=== PATIENT | female | born 1945 | race Caucasian/White ===

== ENCOUNTER → 2017-03-16 | Outpatient (CLI) | payer MEDICARE ==
--- NOTE | 2017-03-18 09:37 | MM ---
Reason for exam: screening (asymptomatic). Last mammogram was performed 1 year and 1 month ago. History: Patient is postmenopausal and has history of endometrial cancer at age 37. Physical Findings: A clinical breast exam by your physician is recommended on an annual basis and results should be correlated with mammographic findings. MG 3D Screening Mammo W/Cad Bilateral CC and MLO view(s) were taken. Prior study comparison: February 20, 2016, bilateral MG 3d screening mammo w/cad. There is chronic nodularity bilaterally. No significant changes when compared with prior studies. ASSESSMENT: Benign, BI-RAD 2 RECOMMENDATION: Routine screening mammogram of both breasts in 1 year.
== END | disposition home or self-care (01) ==
LOC: RADMAMWWP 15:15
PROVIDERS: ATTEND Internal Medicine Geriatric Medicine
DX: Z12.31 Encounter for screening mammogram for malignant neoplasm of breast (principal)
CPT/HCPCS: 77063; G0202

== ENCOUNTER → 2018-04-29 | Outpatient (CLI) | payer MEDICARE, OTHER ==
[2018-04-29 10:40] LABS: Basophils # (A) 0.1 k/uL (0-0.2); Basophils % (A) 1 %; Eosinophils # (A) 0.2 k/uL (0-0.7); Eosinophils % (A) 3 %; HCT 42.4 % (34.0-46.0); HGB 13.9 gm/dL (11.4-16.0); Lymphocytes # (A) 2.1 k/uL (1.0-4.8); Lymphocytes % (A) 26 %; MCH 29.6 pg (25.0-35.0); MCHC 32.8 g/dL (31.0-37.0); MCV 90.2 fL (80.0-100.0); Mean Platelet Volume 6.4; Monocytes # (A) 0.4 k/uL (0-1.0); Monocytes % (A) 5 %; Neutrophils # (A) 5.2 k/uL (1.3-7.7); Neutrophils % (A) 65 %; Platelet Count 275 k/uL (150-450); RDW 13.7 % (11.5-15.5); WBC 8.1 k/uL (3.8-10.6)
--- NOTE | 2018-04-29 11:27 | BD ---
EXAMINATION TYPE: Axial Bone Density DATE OF EXAM: 04/29/2018 COMPARISON: Prior DEXA bone scan February 20, 2016 CLINICAL HISTORY: Height: 4 FT 10 1/2 IN Weight: 161 FRAX RISK QUESTIONS: Family History (Parent hip fracture): YES Secondary Osteoporosis: RISK FACTORS HISTORY OF: Active: YES Postmenopausal woman: PART HYST 37 MEDICATIONS: : Additional Medications: LOSARTAN, BENICAR, WATER PILL, VIT D, POTASSIUM, LOVASTATIN, Additional History: EXAM MEASUREMENTS: Bone mineral densitometry was performed using the [employer] System. Bone mineral density as measured about the Lumbar spine is: ----- L1-L4(G/cm2): 1.040 T Score Values are as follows: ----- L2: -0.6 ----- L3: -0.5 ----- L4: -0.5 ----- L1-L4: -1.0 Bone mineral density has: INCREASED 3.2 % since study of: 2015 Bone mineral density about the R hip (g/cm2): 0.660 Bone mineral density about the L hip (g/cm2): 0.724 T Score values are as follows: -----R Neck: -2.7 -----L Neck: -2.3 -----R Total: -1.9 -----L Total: -1.7 Bone mineral density has: INCREASED 0.6 % since study of: 2015 IMPRESSION: Osteoporosis (T Score less than -2.5) femoral neck level right hip remains present. Bone density fair ly stable from prior. There remains increased fracture risk and therapy is usually indicated based on age. Re-Screen 1-2 years. NOTE: T-SCORE=SD OF THE YOUNG ADULT MEAN.
[2018-04-29 13:16] LABS: ALT 43 U/L (9-52); AST 30 U/L (14-36); Albumin 3.9 g/dL (3.5-5.0); Alkaline Phosphatase 101 U/L (38-126); Anion Gap 6 mmol/L; Blood Urea Nitrogen 15 mg/dL (7-17); Calcium 10.5 mg/dL (8.4-10.2); Carbon Dioxide 29 mmol/L (22-30); Chloride 106 mmol/L (98-107); Cholesterol 166 mg/dL (<200); Glucose 105 mg/dL (74-99); HDL Cholesterol 54 mg/dL (40-60); LDL Cholesterol,Calculated 89 mg/dL (0-99); Potassium 4.1 mmol/L (3.5-5.1); Sodium 141 mmol/L (137-145); Total Bilirubin 0.7 mg/dL (0.2-1.3); Total Protein 6.8 g/dL (6.3-8.2); Triglycerides 117 mg/dL (<150)
[2018-04-29 13:32] LABS: T4, Free (Free Thyroxine) 1.06 ng/dL (0.78-2.19)
[2018-04-29 19:40] LABS: Hemoglobin A1C 5.9 % (4.0-6.0)
--- NOTE | 2018-04-30 12:11 | MM ---
Reason for exam: screening (asymptomatic). Last mammogram was performed 1 year and 1 month ago. History: Patient is postmenopausal and has history of endometrial cancer at age 37. Physical Findings: A clinical breast exam by your physician is recommended on an annual basis and results should be correlated with mammographic findings. MG 3D Screening Mammo W/Cad Bilateral CC and MLO view(s) were taken. Prior study comparison: March 16, 2017, bilateral MG 3d screening mammo w/cad. February 20, 2016, bilateral MG 3d screening mammo w/cad. The breast tissue is heterogeneously dense. This may lower the sensitivity of mammography. There is chronic nodularity bilaterally. There is no dominant lesion. No significant changes when compared with prior studies. ASSESSMENT: Benign, BI-RAD 2 RECOMMENDATION: Routine screening mammogram of both breasts in 1 year.
== END | disposition home or self-care (01) ==
LOC: RADMAMWWP 09:12
PROVIDERS: ATTEND Internal Medicine Geriatric Medicine
DX: Z12.31 Encounter for screening mammogram for malignant neoplasm of breast (principal); M81.0 Age-related osteoporosis without current pathological fracture; E55.9 Vitamin D deficiency, unspecified; D12.6 Benign neoplasm of colon, unspecified; E78.00 Pure hypercholesterolemia, unspecified; R79.9 Abnormal finding of blood chemistry, unspecified
CPT/HCPCS: 36415; 77063; 77067; 77080; 80053; 80061; 82306; 83036; 84439; 84443; 85025

== ENCOUNTER → 2019-05-20 | Outpatient (CLI) | payer MEDICARE ==
--- NOTE | 2019-05-20 09:40 | MM ---
Reason for exam: screening (asymptomatic). Last mammogram was performed 1 year and 1 month ago. History: Patient is postmenopausal and has history of endometrial cancer at age 37. Physical Findings: A clinical breast exam by your physician is recommended on an annual basis and results should be correlated with mammographic findings. MG 3D Screening Mammo W/Cad Bilateral CC and MLO view(s) were taken. Prior study comparison: April 29, 2018, bilateral MG 3d screening mammo w/cad. March 16, 2017, bilateral MG 3d screening mammo w/cad. The breast tissue is heterogeneously dense. This may lower the sensitivity of mammography. There are benign appearing round calcifications bilaterally. There is chronic nodularity bilaterally. There is no discrete abnormality. ASSESSMENT: Benign, BI-RAD 2 RECOMMENDATION: Routine screening mammogram of both breasts in 1 year.
== END | disposition home or self-care (01) ==
LOC: RADMAMWWP 08:54
PROVIDERS: ATTEND Internal Medicine Geriatric Medicine
DX: Z12.31 Encounter for screening mammogram for malignant neoplasm of breast (principal)
CPT/HCPCS: 77063; 77067

== ENCOUNTER → 2022-02-27 | Outpatient (CLI) | payer MEDICARE ==
--- NOTE | 2022-02-27 19:19 | BD ---
EXAMINATION TYPE: Axial Bone Density DATE OF EXAM: 02/27/2022 CLINICAL HISTORY: 76 years year old Female. ICD-10 CODE: AGE RELATED OSTEOPOROSIS M810 Height: 59.75 Weight: 170.3 FRAX RISK QUESTIONS: Alcohol (3 or more units per day): NO Family History (Parent hip fracture): MOTHER Glucocorticoids (More than 3mos): NO History of Fracture in Adulthood: NO Secondary Osteoporosis: 1. Type 1 Diabetes: NO 2. Hyperthyroidism: NO 3. Menopause before 45: YES 4. Malnutrition: NO 5. Chronic liver disease: NO Rheumatoid Arthritis: NO Current Tobacco Use: NO RISK FACTORS HISTORY OF: Hip Fracture (Right/Left): NO Spine Fracture: NO History of Wrist Fracture: NO Surgery to Spine/Hip(right/left)/Wrist (right/left): NO Family History of Osteoporosis: NO Active: YES Diet low in dairy products/other sources of calcium: YES Postmenopausal woman: YES Take estrogen and/or progesterone medications: NO Lost more than 2 inches in height since high school: NO Frequent falls: NO Poor Health: NO Hyperparathyroidism: NO Adrenal Insufficiency: NO MEDICATIONS: Prednisone or other steroids: NO Thyroid Medications:NO Osteoporosis Medications: NO Additional Medications: CHOLESTEROL MEDS, BLOOD PRESSURE MEDS, VIT D, Additional History: EXAM MEASUREMENTS: Bone mineral densitometry was performed using the [employer] System. Bone mineral density as measured about the Lumbar spine is: ----- L1-L4(G/cm2): 1.068 T Score Values are as follows: ----- L1: -2.0 ----- L2: -1.4 ----- L3: 0.1 ----- L4: -0.7 ----- L1-L4: -0.9 Bone mineral density has: increased 1.7 % since study of: 02/20/2016 Bone mineral density about the R hip (g/cm2): 0.637 Bone mineral density about the L hip (g/cm2)0.684 T Score values are as follows: -----R Neck: -2.9 -----L Neck: -2.5 -----R Total: -2.2 -----L Total: -1.9 Bone mineral density has: decreased 3.5 % since study of: 02/20/2016 FRAX%s: The graph provided illustrates a 19.9% chance for a major osteoporotic fx and a 7.3% chance f or the hips probability for fx in 10 years time. IMPRESSION: Osteoporosis (T Score less than -2.5). There is increased fracture risk and therapy is usually indicated based on age. Re-Screen 1-2 years. NOTE: T-SCORE=SD OF THE YOUNG ADULT MEAN.
--- NOTE | 2022-03-05 15:47 | MM ---
Reason for Exam: Screening (asymptomatic). Last mammogram was performed 2 year(s) and 10 month(s) ago. Patient History: Menarche at age 13. First Full-Term at age 19. Hysterectomy at age 37. Postmenopausal. Endometrial cancer, age 37. Risk Values: Enma 5 year model risk: 1.3%. NCI Lifetime model risk: 2.6%. Prior Study Comparison: 03/16/2017 Bilateral Screening Mammogram, [facility]. 04/29/2018 Bilateral Screening Mammogram, [facility]. 05/20/2019 Bilateral Screening Mammogram, [facility]. Tissue Density: There are scattered fibroglandular densities. Findings: Analyzed By CAD. There is a 5 mm mass in the posterior depth of the right breast on the lateral lower quadrant. Left breast demonstrates no suspicious mass constipation or distortion. Overall Assessment: Incomplete: need additional imaging evaluation, BI-RAD 0 Management: Diagnostic Mammogram of the right breast. A clinical breast exam by your physician is recommended on an annual basis and results should be correlated with mammographic findings. Electronically signed and approved by: Jack Savage DO
== END | disposition home or self-care (01) ==
LOC: RADBDWWP 13:05
PROVIDERS: ATTEND Internal Medicine Geriatric Medicine
DX: Z12.31 Encounter for screening mammogram for malignant neoplasm of breast (principal); M81.0 Age-related osteoporosis without current pathological fracture; R92.8 Other abnormal and inconclusive findings on diagnostic imaging of breast; M25.552 Pain in left hip; M54.9 Dorsalgia, unspecified
CPT/HCPCS: 77063; 77067; 77080

== ENCOUNTER → 2022-02-27 | Outpatient (CLI) | payer MEDICARE ==
--- NOTE | 2022-02-27 18:17 | XR ---
Bilateral hips HISTORY: Pain 2 views of each hip submitted, no comparisons Bone mineralization mildly reduced. No significant arthropathy. Alignment and joint spaces maintained . No fracture or dislocation. IMPRESSION: Suspect osteopenia.
--- NOTE | 2022-02-27 18:21 | XR ---
Lumbar spine HISTORY: Back pain 3 views of the lumbar spine, no comparisons There is multilevel spondylosis. Bone mineralization is reduced. Lumbar vertebral bodies show preserv ed height and alignment. There is loss of disc height at intervertebral levels, vacuum phenomenon pre sent at L3-4 and L2-3. Sclerosis in the posterior elements is consistent with facet arthropathy. Mini mal anterolisthesis grade 1 L5-S1. Atherosclerotic calcification is present in the aorta iliac distri bution. IMPRESSION: Degenerative disc disease and facet arthropathy. Osteopenia. Additional findings above.
== END | disposition home or self-care (01) ==
LOC: RADXRMAIN 13:58
PROVIDERS: ATTEND Nurse Practitioner Family
DX: M25.552 Pain in left hip (principal); M54.9 Dorsalgia, unspecified
CPT/HCPCS: 72100; 73521

== ENCOUNTER → 2022-03-10 | Outpatient (CLI) | payer MEDICARE ==
--- NOTE | 2022-03-10 14:10 | MM ---
Reason for Exam: Additional evaluation requested from abnormal screening. Last screening mammogram was performed less than 1 month ago. Patient History: Menarche at age 13. First Full-Term at age 19. Hysterectomy at age 37. Postmenopausal. Endometrial cancer, age 37. Risk Values: Enma 5 year model risk: 1.3%. NCI Lifetime model risk: 2.6%. Prior Study Comparison: 12/15/2002 Bilateral Screening Mammogram, [facility]. 01/02/2003 Left Special View Mammogram, [facility]. 01/02/2003 Left Diagnostic Ultrasound, [facility]. 06/26/2003 Left Special View Mammogram, [facility]. 01/22/2005 Bilateral Diagnostic Mammogram, [facility]. 07/20/2006 Bilateral Screening Mammogram, [facility]. 10/04/2007 Bilateral Screening Mammogram, [facility]. 10/11/2007 Left Diagnostic Mammogram, [facility]. 10/11/2008 Bilateral Screening Mammogram, [facility]. 02/04/2011 Bilateral Screening Mammogram, [facility]. 05/17/2012 Bilateral Screening Mammogram, [facility]. 05/30/2013 Bilateral Screening Mammogram, [facility]. 06/29/2014 Bilateral Screening Mammogram, [facility]. 07/07/2014 Left Diagnostic Ultrasound, [facility]. 02/20/2016 Bilateral Screening Mammogram, [facility]. 03/16/2017 Bilateral Screening Mammogram, [facility]. 04/29/2018 Bilateral Screening Mammogram, [facility]. 05/20/2019 Bilateral Screening Mammogram, [facility]. 02/27/2022 Bilateral MG 3D screening mammo w/cad, [facility]. Tissue Density: Right: There are scattered fibroglandular densities. Findings: Analyzed By CAD. The questioned nodular asymmetry far posterior lateral right breast on spot compression views show a circumscribed small mass which was present on the 2017 exam. Findings compatible with a low axillary tail lymph node. No significant change from prior exams. Overall Assessment: Benign, BI-RAD 2 Management: Screening Mammogram of both breasts in 1 year. 1. Patient should continue monthly self breast exams. 2. A clinical breast exam by your physician is recommended on an annual basis. 3. This exam should not preclude additional follow-up of suspicious palpable abnormalities. Electronically signed and approved by: Yasmin Wheeler M.D. Radiologist
== END | disposition home or self-care (01) ==
LOC: RADMAMWWP 13:34
PROVIDERS: ATTEND Internal Medicine Geriatric Medicine
DX: R92.8 Other abnormal and inconclusive findings on diagnostic imaging of breast (principal)
CPT/HCPCS: 77065; G0279; 77061

== ENCOUNTER 2023-09-23 14:42 | Emergency (ER) | payer MEDICARE, OTHER ==
[2023-09-23 15:11] VITALS: RESP 16; TEMP 97.7
--- NOTE | 2023-09-23 15:24 | ED ---
Syncope HPI - General Chief Complaint: Syncope Stated Complaint: Fall - Head/back injury Time Seen by Provider: 09/23/23 15:08 Source: patient, family, RN notes reviewed, old records reviewed Mode of arrival: ambulatory Limitations: no limitations - History of Present Illness Initial Comments: This is a 78-year-old female to the ER for evaluation today of a syncopal event. Patient has had 2 syncopal events this week once on Thursday and once prior to a rrival earlier in the day today. Patient has had no headache no chest pain no shortness of breath involved with either event. They were both after some significant activity but patient states he does live a very active lifestyle and that her activity level has been not more than normal. Patient has a current significant headache posterior following backwards and hitting her head after the syncopal event. Prior to this patient had no history of syncope, patient also admits to stopping her blood pressure medication on Thursday after initial syncopal event as she thought the blood pressure medication she took may have caused at MD Complaint: loss of consciousness, collapsed, other (Head injury,) -: days(s) (3 days ago syncopal event) Time: 10:00 (Patient with syncopal event today) Prodromal Symptoms: headache, lightheaded, palpitations -: second(s) Witnessed: yes - by bystander Injuries Sustained Associated with Event: None Current Symptoms: back to baseline, lightheaded Context: at rest Treatments Prior to Arrival: none - Related Data Allergies Allergy/AdvReac Type Severity Reaction Status Date / Time clarithromycin [From Biaxin] Allergy Rash/Hives Verified 09/23/23 14:48 codeine Allergy Rash/Hives Verified 09/23/23 14:48 Penicillins Allergy Rash/Hives Verified 09/23/23 14:48 Sulfa (Sulfonamide Allergy Rash/Hives Verified 09/23/23 14:48 Antibiotics) Review of Systems ROS Statement: Those systems with pertinent positive or pertinent negative responses have been documented in the HPI. ROS Other: All systems not noted in ROS Statement are negative. Past Medical History Past Medical History: Hyperlipidemia, Hypertension Past Surgical History: Cholecystectomy, Hysterectomy Smoking Status: Never smoker General Exam Limitations: no limitations General appearance: alert, in no apparent distress Head exam: Present: atraumatic, normocephalic, normal inspection Eye exam: Present: normal appearance, PERRL, EOMI. Absent: scleral icterus, conjunctival injection, periorbital swelling ENT exam: Present: normal exam, mucous membranes moist Neck exam: Present: normal inspection. Absent: tenderness, meningismus, lymphadenopathy Respiratory exam: Present: normal lung sounds bilaterally. Absent: respiratory distress, wheezes, rales, rhonchi, stridor Cardiovascular Exam: Present: regular rate, normal rhythm, normal heart sounds. Absent: systolic murmur, diastolic murmur, rubs, gallop, clicks GI/Abdominal exam: Present: soft, normal bowel sounds. Absent: distended, tenderness, guarding, rebound, rigid Extremities exam: Present: normal inspection, full ROM, normal capillary refill. Absent: tenderness, pedal edema, joint swelling, calf tenderness Back exam: Present: normal inspection Neurological exam: Present: alert, oriented X3, CN II-XII intact Psychiatric exam: Present: normal affect, normal mood Skin exam: Present: warm, dry, intact, normal color. Absent: rash Course Vital Signs 09/23/23 09/23/23 14:45 19:26 Temperature 97.7 F Pulse Rate 74 67 Respiratory 16 16 Rate Blood Pressure 208/93 175/96 O2 Sat by Pulse 98 95 Oximetry - Reevaluation(s) Reevaluation #1: 09/23/23 18:46 Records reviewed Reevaluation #2: 09/23/23 18:46 Patient has no recurrent syncope here in the ER Reevaluation #3: 09/23/23 18:47 Patient informed of results and questions answered Reevaluation #4: Was pt. sent in by a medical professional or institution (, PA, [employer], urgent care, hospital, or alf...) When possible be specific @ -no Did you speak to anyone other than the patient for history (EMS, parent, family, police, friend...)? What history was obtained from this source @ -no Did you review nursing and triage notes (agree or disagree)? Why? @ -agree Are old charts reviewed (outside hosp., previous admission, EMS record, old EKG, old radiological studies, urgent care reports/EKG's, alf records)? Report findings @ -yes Differential Diagnosis (chest pain, altered mental status, abdominal pain women, abdominal pain men, vaginal bleeding, weakness, fever, dyspnea, syncope, headache, dizziness, GI bleed, back pain, seizure, CVA, palpatations, mental health, musculoskeletal)? @ -prior EKG interpreted by me (3pts min.). @ -yes X-rays interpreted by me (1pt min.). @ -no CT interpreted by me (1pt min.). @ -Yes negative for acute disease U/S interpreted by me (1pt. min.). @ -no What testing was considered but not performed or refused? (CT, X-rays, U/S, labs)? Why? @ -none What meds were considered but not given or refused? Why? @ -none Did you discuss the management of the patient with other professionals (professionals i.e. DrKhalif, PA, [employer], lab, RT, psych nurse, rn social work, immigration lawyer, teacher, law enforcement officer, medical case manager)? Give summary @ -no Was smoking cessation discussed for >3mins.? @ -no Was critical care preformed (if so, how long)? @ -yes31 Were there social determinants of health that impacted care today? How? (Homelessness, low income, unemployed, alcoholism, drug addiction, transportation, low edu. Level, literacy, decrease access to med. care, assisted, rehab)? @ -none Was there de-escalation of care discussed even if they declined (Discuss DNR or withdrawal of care, Hospice)? DNR status @ -no What co-morbidities impacted this encounter? (DM, HTN, Smoking, COPD, CAD, Cancer, CVA, ARF, Chemo, Hep., AIDS, mental health diagnosis, sleep apnea, morbid obesity)? @ -none Was patient admitted / discharged? Hospital course, mention meds given and route, prescriptions, significant lab abnormalities, going to OR and other pertinent info. @ - 78 female to ER for syncopal evaluation. Syncope with head injury today posterior scalp hematoma. Patient does have CT scan negative for traumatic injury or cause, patient has no known cause of syncope here in the ER, no arrhythmia on monitor, lab testing otherwise normal she does have mild urinary tract infection will place antibiotics and patient can be discharged home Discharge Undiagnosed new problem with uncertain prognosis? @ -no Drug Therapy requiring intensive monitoring for toxicity (Heparin, Nitro, Insulin, Cardizem)? @ -no Were any procedures done? @ -no Diagnosis/symptom? @ -Syncope with head injury, occipital hematoma Acute, or Chronic, or Acute on Chronic? @ -Acute Uncomplicated (without systemic symptoms) or Complicated (systemic symptoms)? @ -Complicated Side effects of treatment? @ -no Exacerbation, Progression, or Severe Exacerbation? @ -exacerbation Poses a threat to life or bodily function? How? (Chest pain, USA, UT, pneumonia, PE, COPD, DKA, ARF, appy, cholecystitis, CVA, Diverticulitis, Homicidal, Suicidal, threat to staff... and all critical care pts) @ -yes with significant cause of syncope Reevaluation #5: Differential Syncope: Valvular disease, hypertrophic cardiomyopathy, pulmonary embolism, tamponade, tachycardia, bradycardia, UT, hypovolemia, hemorrhage, dissection, anemia, intracranial hemorrhage, seizure, hypoglycemia, carbon monoxide poisoning, this is not meant to be an all-inclusive list. EKG Findings - EKG Comments: EKG Findings:: EKG is sinus 71 DC 169 QRS 93 QTc 409 - EKG Results: EKG: interpreted by JOEY Medical Decision Making - Medical Decision Making 78 female to ER for syncopal evaluation. Syncope with head injury today posterior scalp hematoma. Patient does have CT scan negative for traumatic injury or cause, patient has no known cause of syncope here in the ER, no arrh ythmia on monitor, lab testing otherwise normal she does have mild urinary tract infection will place antibiotics and patient can be discharged home - Lab Data Result diagrams: 09/23/23 16:11 09/23/23 16:11 Lab Results 09/23/23 09/23/23 09/23/23 Range/Units 16:11 16:11 16:11 WBC 10.3 (3.8-10.6) k/uL RBC 4.81 (3.80-5.40) m/uL Hgb 14.3 (11.4-16.0) gm/dL Hct 42.9 (34.0-46.0) % MCV 89.2 (80.0-100.0) fL MCH 29.7 (25.0-35.0) pg MCHC 33.3 (31.0-37.0) g/dL RDW 13.8 (11.5-15.5) % Plt Count 229 (150-450) k/uL MPV 7.6 Neutrophils % 78 % Lymphocytes % 14 % Monocytes % 5 % Eosinophils % 1 % Basophils % 1 % Neutrophils # 8.0 H (1.3-7.7) k/uL Lymphocytes # 1.4 (1.0-4.8) k/uL Monocytes # 0.6 (0-1.0) k/uL Eosinophils # 0.1 (0-0.7) k/uL Basophils # 0.1 (0-0.2) k/uL PT 10.5 (10.0-12.5) sec INR 0.9 (<1.2) APTT 24.9 (22.0-30.0) sec D-Dimer 4.28 H (<0.60) mg/L FEU Sodium 141 (137-145) mmol/L Potassium 3.6 (3.5-5.1) mmol/L Chloride 108 H (98-107) mmol/L Carbon Dioxide 27 (22-30) mmol/L Anion Gap 6 mmol/L BUN 17 (7-17) mg/dL Creatinine 0.63 (0.52-1.04) mg/dL Est GFR (CKD-EPI)AfAm >90 (>60 ml/min/1.73 sqM) Est GFR (CKD-EPI)NonAf 86 (>60 ml/min/1.73 sqM) Glucose 98 (74-99) mg/dL Calcium 9.9 (8.4-10.2) mg/dL Phosphorus 3.2 (2.5-4.5) mg/dL Magnesium 1.9 (1.6-2.3) mg/dL Total Bilirubin 0.7 (0.2-1.3) mg/dL AST 38 H (14-36) U/L ALT 40 H (4-34) U/L Alkaline Phosphatase 113 (38-126) U/L Troponin I (0.000-0.034) ng/mL NT-Pro-B Natriuret Pep 663 pg/mL Total Protein 6.8 (6.3-8.2) g/dL Albumin 4.1 (3.5-5.0) g/dL Urine Color Urine Appearance (Clear) Urine pH (5.0-8.0) Ur Specific [place] (1.001-1.035) Urine Protein (Negative) Urine Glucose (UA) (Negative) Urine Ketones (Negative) Urine Blood (Negative) Urine Nitrite (Negative) Urine Bilirubin (Negative) Urine Urobilinogen (<2.0) mg/dL Ur Leukocyte Esterase (Negative) Urine RBC (0-5) /hpf Urine WBC (0-5) /hpf Ur Squamous Epith Cells (0-4) /hpf Urine Bacteria (None) /hpf Urine Mucus (None) /hpf 09/23/23 09/23/23 Range/Units 16:11 17:43 WBC (3.8-10.6) k/uL RBC (3.80-5.40) m/uL Hgb (11.4-16.0) gm/dL Hct (34.0-46.0) % MCV (80.0-100.0) fL MCH (25.0-35.0) pg MCHC (31.0-37.0) g/dL RDW (11.5-15.5) % Plt Count (150-450) k/uL MPV Neutrophils % % Lymphocytes % % Monocytes % % Eosinophils % % Basophils % % Neutrophils # (1.3-7.7) k/uL Lymphocytes # (1.0-4.8) k/uL Monocytes # (0-1.0) k/uL Eosinophils # (0-0.7) k/uL Basophils # (0-0.2) k/uL PT (10.0-12.5) sec INR (<1.2) APTT (22.0-30.0) sec D-Dimer (<0.60) mg/L FEU Sodium (137-145) mmol/L Potassium (3.5-5.1) mmol/L Chloride (98-107) mmol/L Carbon Dioxide (22-30) mmol/L Anion Gap mmol/L BUN (7-17) mg/dL Creatinine (0.52-1.04) mg/dL Est GFR (CKD-EPI)AfAm (>60 ml/min/1.73 sqM) Est GFR (CKD-EPI)NonAf (>60 ml/min/1.73 sqM) Glucose (74-99) mg/dL Calcium (8.4-10.2) mg/dL Phosphorus (2.5-4.5) mg/dL Magnesium (1.6-2.3) mg/dL Total Bilirubin (0.2-1.3) mg/dL AST (14-36) U/L ALT (4-34) U/L Alkaline Phosphatase (38-126) U/L Troponin I <0.012 (0.000-0.034) ng/mL NT-Pro-B Natriuret Pep pg/mL Total Protein (6.3-8.2) g/dL Albumin (3.5-5.0) g/dL Urine Color Colorless Urine Appearance Cloudy H (Clear) Urine pH 6.5 (5.0-8.0) Ur Specific [place] 1.012 (1.001-1.035) Urine Protein Negative (Negative) Urine Glucose (UA) Negative (Negative) Urine Ketones 1+ H (Negative) Urine Blood Negative (Negative) Urine Nitrite Negative (Negative) Urine Bilirubin Negative (Negative) Urine Urobilinogen <2.0 (<2.0) mg/dL Ur Leukocyte Esterase Large H (Negative) Urine RBC 2 (0-5) /hpf Urine WBC 29 H (0-5) /hpf Ur Squamous Epith Cells 3 (0-4) /hpf Urine Bacteria Rare H (None) /hpf Urine Mucus Rare H (None) /hpf - EKG Data -: EKG Interpreted by [place] - Radiology Data Radiology results: report reviewed (CT brain and C-spine CTA chest is negative for acute disease), image reviewed Critical Care Time Critical Care Time: Yes Total Critical Care Time: 31 Disposition Clinical Impression: Vasovagal syncope, Syncope, UTI (urinary tract infection), Hematoma of occipital region of scalp Disposition: HOME SELF-CARE Condition: Good Instructions (If sedation given, give patient instructions): Syncope (ED) Is patient prescribed a controlled substance at d/c from ED?: No Referrals: Ramirez Barrera MD [Primary Care Provider] - 1-2 days Time of Disposition: 18:30
[2023-09-23] MEDS: SODIUM CHLORIDE 0.9% 1,000 ML IV STA (16:12)
[2023-09-23 16:27] LABS: Basophils # (A) 0.1 k/uL (0-0.2); Basophils % (A) 1 %; Eosinophils # (A) 0.1 k/uL (0-0.7); Eosinophils % (A) 1 %; HCT 42.9 % (34.0-46.0); HGB 14.3 gm/dL (11.4-16.0); Lymphocytes # (A) 1.4 k/uL (1.0-4.8); Lymphocytes % (A) 14 %; MCH 29.7 pg (25.0-35.0); MCHC 33.3 g/dL (31.0-37.0); MCV 89.2 fL (80.0-100.0); Mean Platelet Volume 7.6; Monocytes # (A) 0.6 k/uL (0-1.0); Monocytes % (A) 5 %; Neutrophils % (A) 78 %; Platelet Count 229 k/uL (150-450); RBC 4.81 m/uL (3.80-5.40); RDW 13.8 % (11.5-15.5); WBC 10.3 k/uL (3.8-10.6)
--- NOTE | 2023-09-23 16:34 | CT ---
EXAMINATION TYPE: CT brain ruben short DATE OF EXAM: 09/23/2023 COMPARISON: None HISTORY: syncope, fell hitting head CT DLP: 1308.[address] of the brain was performed. The ventricles, basal cisterns and sulci overlying the cerebral convexities demonstrate mild enlargem ent. There is no evidence for intracranial hemorrhage or sulcal effacement. There is decreased attenuatio n about the periventricular white matter and deep white matter of both cerebral hemispheres, compatib le with chronic small vessel ischemia. No mass effects are seen. If symptoms persist consider MRI. Osseous calvarium is intact. Large scalp hematoma with scalp edema right occipital parietal region. IMPRESSION: 1. Age related atrophic and chronic small vessel ischemic change without acute intracranial process seen at this time. CT Cervical Spine: Unenhanced CT of the cervical spine was performed with bone and soft tissue window settings submitted . Coronal and sagittal reconstruction is obtained. There is normal alignment and prevertebral soft tissues. No evidence for acute cervical fracture . Scattered degenerative disc disease and spondylosis. Biapical scarring. IMPRESSION: 1. No evidence for acute fracture or subluxation of the cervical spine.
[2023-09-23 16:42] LABS: INR 0.9 (<1.2); Partial Thromboplastin Time 24.9 sec (22.0-30.0); Prothrombin Time 10.5 sec (10.0-12.5)
[2023-09-23 16:52] LABS: ALT 40 U/L (4-34); AST 38 U/L (14-36); African American GFR (CKD) >90 (>60 ml/min/1.73 sqM); Albumin 4.1 g/dL (3.5-5.0); Alkaline Phosphatase 113 U/L (38-126); Anion Gap 6 mmol/L; Blood Urea Nitrogen 17 mg/dL (7-17); Calcium 9.9 mg/dL (8.4-10.2); Carbon Dioxide 27 mmol/L (22-30); Chloride 108 mmol/L (98-107); Glucose 98 mg/dL (74-99); Magnesium 1.9 mg/dL (1.6-2.3); Non-African American GFR(CKD) 86 (>60 ml/min/1.73 sqM); Phosphorus 3.2 mg/dL (2.5-4.5); Potassium 3.6 mmol/L (3.5-5.1); Sodium 141 mmol/L (137-145); Total Bilirubin 0.7 mg/dL (0.2-1.3); Total Protein 6.8 g/dL (6.3-8.2)
[2023-09-23 17:00] LABS: NT-Pro-B-Type Natriuretic Pept 663 pg/mL
[2023-09-23 17:57] LABS: Appearance,Urine Cloudy (Clear); Bacteria,Urine Rare /hpf; Bilirubin,Urine Negative (Negative); Blood,Urine Negative (Negative); Color,Urine Colorless; Glucose,Urine (UA) Negative (Negative); Ketones,Urine 1+ (Negative); Leukocyte Esterase,Urine Large (Negative); Mucus,Urine Rare /hpf; Nitrite,Urine Negative (Negative); PH, Urine 6.5 (5.0-8.0); Protein,Urine Negative (Negative); RBC,Urine 2 /hpf (0-5); Specific Gravity,Urine 1.012 (1.001-1.035); Squamous Epithelial Cell,Urine 3 /hpf (0-4); Urobilinogen,Urine <2.0 mg/dL (<2.0); WBC,Urine 29 /hpf (0-5)
--- NOTE | 2023-09-23 18:07 | CT ---
EXAMINATION TYPE: CT angio chest CT DLP: 277.9 mGycm, Automated exposure control for dose reduction was used. DATE OF EXAM: 09/23/2023 5:54 PM COMPARISON: None CLINICAL INDICATION:Female, 78 years old with history of pe; elevated D dimer TECHNIQUE/CONTRAST: CTA scan of the thorax is performed with IV Contrast, patient injected with 100 ml mL of Isovue 370, MIP images are created and reviewed these are created on a separate workstation.. FINDINGS: Pulmonary Artery: There is no evidence for a filling defect within the pulmonary vasculature to sugge st acute pulmonary embolism. The pulmonary artery is of normal size. Lungs/Pleura: No evidence of focal consolidation, pleural effusion or pneumothorax. Atelectasis hodge es in the lung bases.. There is a groundglass opacity in the right middle lobe near the hilar region with some bronchiectasi s/cystic change. Area measures up to 26 mm. Mild centrilobular emphysema changes throughout the lungs. Airway: Large airways are patent. Heart: Heart is within normal limits for size. Vasculature: Moderate atherosclerotic calcifications are present throughout the aorta and its branche s. Mediastinum: No gross evidence of adenopathy. Small hiatal hernia is present. Musculoskeletal: No acute osseous abnormalities Soft Tissues: Unremarkable. Lower neck: No significant findings. Upper Abdomen: Left hepatic lobe cyst with some peripheral consultations measuring up to 9.0 x 6.3 cm . Diffuse low-attenuation liver background parenchyma. Additional smaller cysts also present. Visuali zed upper abdominal vasculature is patent. IMPRESSION: 1. No evidence of pulmonary embolism. 2. Ground glass opacity in the right middle lobe in the perihilar region.. Consider yearly low-dose l vivian cancer screening for surveillance. No priors are available for comparison. 3. Mild emphysema. 4. Hepatic steatosis. 5. Left hepatic lobe cyst with peripheral segmental septations.
[2023-09-23] MEDS: LABETALOL 5 MG/ML VIAL MDV IVP STA (18:27)
[2023-09-23 19:30] VITALS: BP 175/96; PULSE 67
== END 2023-09-23 19:27 | disposition home or self-care (01) ==
LOC: EC 14:42
DX: S00.03XA Contusion of scalp, initial encounter (principal); R55 Syncope and collapse; N39.0 Urinary tract infection, site not specified; Z88.0 Allergy status to penicillin; Z88.1 Allergy status to other antibiotic agents; Z88.2 Allergy status to sulfonamides; Z88.5 Allergy status to narcotic agent; W18.39XA Other fall on same level, initial encounter
CPT/HCPCS: 36415; 93005; 85379; 83880; 80053; 83735; 84100; 84484; 85025; 85610; 85730; 81001; 72125; 70450; 71275; 99285; 96374; 96375; 96361; J0696; Q9967; J1920

== ENCOUNTER → 2023-10-19 | Outpatient (CLI) | payer MEDICARE, OTHER ==
--- NOTE | 2023-10-20 09:53 | MM ---
Reason for Exam: Screening (asymptomatic). Last mammogram was performed 1 year(s) and 7 month(s) ago. Patient History: Menarche at age 13. First Full-Term at age 19. Hysterectomy at age 37. Postmenopausal. Endometrial cancer, age 37. Risk Values: Enma 5 year model risk: 1.2%. NCI Lifetime model risk: 2.2%. Prior Study Comparison: 05/20/2019 Bilateral Screening Mammogram, [facility]. 02/27/2022 Bilateral MG 3D screening mammo w/cad, [facility]. 03/10/2022 Right MG 3D work up w/cad RT, [facility]. Tissue Density: The breasts are heterogeneously dense, which may obscure small masses. Findings: Analyzed By CAD. There is no suspicious group of microcalcifications or new suspicious mass in either breast. Stable chronic nodularity benign-appearing lymph nodes. Overall Assessment: Benign, BI-RAD 2 Management: Screening Mammogram of both breasts in 1 year. . Patient should continue monthly self-breast exams. A clinical breast exam by your physician is recommended on an annual basis. This exam should not preclude additional follow-up of suspicious palpable abnormalities. Note on Enma scores and lifetime risk: 1. A Enma score greater than 3% is considered moderate risk. If this is the case, consider specialist referral to assess eligibility for a risk reducing agent. 2. If overall lifetime risk for the development of breast cancer is 20% or higher, the patient may qualify for future screening with alternating mammogram and breast MRI. Electronically signed and approved by: Ramirez Preston M.D. Radiologis
== END | disposition home or self-care (01) ==
LOC: RADMAMWWP 09:07
PROVIDERS: ATTEND Internal Medicine Geriatric Medicine
DX: Z12.31 Encounter for screening mammogram for malignant neoplasm of breast (principal); Z78.0 Asymptomatic menopausal state
CPT/HCPCS: 77063; 77067

== ENCOUNTER → 2023-10-30 | Outpatient (CLI) | payer MEDICARE, OTHER ==
--- NOTE | 2023-10-30 16:57 | US ---
EXAMINATION TYPE: US carotid duplex BILAT DATE OF EXAM: 10/30/2023 COMPARISON: NONE CLINICAL INDICATION: Female, 78 years old with history of I65.23 OCCLUSION AND STENOSIS OF BILATERAL CAROTID; TECHNIQUE: Carotid duplex ultrasound examination. Indirect Doppler criteria was utilized. FINDINGS: EXAM MEASUREMENTS: RIGHT: Peak Systolic Velocity (PSV) cm/sec ----- Right CCA: 48.8 ----- Right ICA: 67.2 ----- Right ECA: 79.2 ICA/CCA ratio: 1.4 RIGHT: End Diastole cm/sec ----- Right CCA: 16.8 ----- Right ICA: 23.6 ----- Right ECA: 15.9 LEFT: Peak Systolic Velocity (PSV) cm/sec ----- Left CCA: 48.5 ----- Left ICA: 76.4 ----- Left ECA: 85.3 ICA/CCA ratio: 1.6 LEFT: End Diastole cm/sec ----- Left CCA: 17.1 ----- Left ICA: 23.7 ----- Left ECA: 21.5 VERTEBRALS (direction of flow): Right Vertebral: Antegrade Left Vertebral: Antegrade Rhythm: Normal No significant stenosis. Mild amount of plaque identified within the right proximal internal carotid artery. Minimal amount of plaque identified within the left carotid bulb. IMPRESSION: No ultrasound evidence for hemodynamically significant stenosis of the bilateral visualized carotid a rterial systems. Criteria for Assigning % of Stenosis / Diameter reduction (Estimation based on the indirect measurements of the internal carotid artery velocities (ICA PSV). 1. Normal (no stenosis)=ICA PSV < 125 cm/s: ratio < 2.0: ICA EDV<40 cm/s. 2. Less than 50% stenosis=ICA PSV < 125 cm/s: ratio < 2.0: ICA EDV<40 cm/s. 3. 50 to 69% stenosis=ICA PSV of 125 to 230 cm/s: ration 2.0 ? 4.0: ICA EDV 40-100 cm/s. 4. Greater than 70% stenosis to near occlusion= ICA PSV > 230 cm/s: ratio > 4.0: ICA EDV > 100 cm/s. 5. Near occlusion= ICA PSV velocities may be low or undetectable: variable ratio and ICA EDV. 6. Total occlusion=unable to detect flow.
== END ==
LOC: RADUSWWP 12:31
PROVIDERS: ATTEND Internal Medicine Geriatric Medicine
DX: I65.23 Occlusion and stenosis of bilateral carotid arteries (principal)
CPT/HCPCS: 93880